=== PATIENT | female | born 1965 | race African-American/Black ===

== ENCOUNTER 2017-03-11 08:51 | Emergency (ER) | payer OTHER ==
[~2017-03-11] VITALS: Ht 182.9 cm; Wt 90.7 kg
[2017-03-11] MEDS ORDERED: PREDNISONE 20 M20 MG PO (09:04)
[2017-03-11] MEDS ORDERED: NORCO 5-325 TA1 EACH PO (09:04)
[2017-03-11 09:15] VITALS: BP 150/76
== END 2017-03-11 09:15 | disposition home or self-care (01) ==
LOC: ER 08:51
DX: S46.912A Strain of unspecified muscle, fascia and tendon at shoulder and upper arm level, left arm, initial encounter (principal); X58.XXXA Exposure to other specified factors, initial encounter; Y93.89 Activity, other specified; Y92.89 Other specified places as the place of occurrence of the external cause; Y99.8 Other external cause status